=== PATIENT | male | born 1950 | race Caucasian/White ===

== ENCOUNTER → 2022-06-10 | Outpatient (CLI) | payer MEDICARE ==
--- NOTE | 2022-06-10 21:50 | CT ---
EXAMINATION TYPE: CT urogram wo/w con CT DLP: 1682.80 mGycm, Automated exposure control for dose reduction was used. DATE OF EXAM: 06/10/2022 4:48 PM COMPARISON: None CLINICAL INDICATION:Male, 71 years old with history of C67.9 Bladder Cancer; TECHNIQUE: Urogram with unenhanced, nephrographic and excretory phase imaging of the abdomen and pelvis using tw o doses of 100 cc of IV contrast Isovue 300 contrast. Coronal and sagittal reformats were performed. One or more CT dose reduction strategies were utilized during this examination. 2D and 3D reconstruct ions are performed to assist visualization of the urinary tract on a separate workstation. FINDINGS: GENITOURINARY: RIGHT KIDNEY AND URETER: No calculi. No hydronephrosis or hydroureter. No renal mass or other lesions . No urothelial lesions: no filling defect, dilation, stricture or wall thickening. Right renal subce ntimeter cyst. LEFT KIDNEY AND URETER: No calculi. No hydronephrosis or hydroureter. No renal mass or other lesions. No urothelial lesions: no filling defect, dilation, stricture or wall thickening. Renal cyst measuri ng up to 2.8 cm. Additional scattered smaller cysts. URINARY BLADDER: Not optimally distended. no calculi, no obvious mass or other lesions. REPRODUCTIVE: Prostate measures up to 4.6 cm in transverse dimension. ABDOMEN LIVER: Diffusely hypoattenuating, consistent with hepatic steatosis. Hypodense lesion within the dome of the liver likely representing cysts. GALLBLADDER AND BILE DUCTS: Scattered layering increased densities consistent with gallstones are pre sent. PANCREAS: Unremarkable. SPLEEN: Unremarkable. ADRENAL GLANDS: Unremarkable. STOMACH AND BOWEL: Colonic diverticulosis. No evidence of bowel obstruction. PERITONEUM: No evidence of pneumoperitoneum, free fluid, or adenopathy. VASCULATURE: No aortic aneurysm. Mild atherosclerosis of the arterial vasculature. MUSCULOSKELETAL: Multilevel degenerative changes are present throughout the thoracolumbar spine. Ther e is straightening of the spine with at least a reversal of the lumbar spine curvature. There is L3-L 4 disc bulge with at least mild spinal canal stenosis. SOFT TISSUE/ABDOMINAL WALL: Bilateral fat containing inguinal hernias, left greater than right. LOWER CHEST: Cardiac conduction leads are partially visualized. Visualization of the chest demonstrat es moderate emphysema changes. IMPRESSION: 1. No evidence of urolithiasis or renal/urothelial neoplasm. 2. Bilateral simple renal cysts. 3. Moderate emphysema. 4. Hepatic steatosis. 5. Colonic diverticulosis. 6. Fat filled bilateral inguinal hernias. 7. Cholelithiasis
== END | disposition home or self-care (01) ==
LOC: RADCTMAIN 13:49
PROVIDERS: ATTEND Urology
DX: C67.9 Malignant neoplasm of bladder, unspecified (principal); N28.1 Cyst of kidney, acquired; J43.9 Emphysema, unspecified; K76.0 Fatty (change of) liver, not elsewhere classified; K57.30 Diverticulosis of large intestine without perforation or abscess without bleeding; K80.20 Calculus of gallbladder without cholecystitis without obstruction; K40.20 Bilateral inguinal hernia, without obstruction or gangrene, not specified as recurrent
CPT/HCPCS: 82565; 84520; 74178; 36415; 74400; Q9967